=== PATIENT | female | born 1945 | race Caucasian/White ===

== ENCOUNTER 2021-11-22 13:47 | Emergency (ER) | payer MEDICARE, OTHER ==
[2021-11-22] MEDS ORDERED: methylPREDNISolone Sodium Succinate 125 MG/2 ML SDV IM STA (14:26)
[2021-11-22] MEDS ORDERED: Albuterol/Ipratropium 3.0-0.5 MG/3 ML Neb Soln NEB STA (14:26)
[2021-11-22 14:58] LABS: BASE EXCESS VENOUS,POC -1 mmol/L (-2 - 3+); PCO2 VENOUS,POC 51 mmHg (41-51); PH VENOUS,POC 7.32 pH Units (7.32-7.43)
== END 2021-11-22 15:40 | disposition home or self-care (01) ==
LOC: FB.ED 13:47
DX: J20.9 Acute bronchitis, unspecified (principal); Z79.899 Other long term (current) drug therapy
CPT/HCPCS: 36415; 71045; 80053; 83880; 84484; 85025; 93005; 94640; 96372; 99284; J2930; 93010; 99283; J7620-GY